=== PATIENT | female | born 1970 | race Caucasian/White ===

== ENCOUNTER 2019-06-23 14:43 | Emergency (ER) | payer OTHER ==
[2019-06-23 15:00] VITALS: BP 110/77; PULSE 91; TEMP 98.7; BMI 38.9
--- NOTE | 2019-06-23 15:27 | PDOC ---
History of Present Illness - General Chief Complaint: Syncope/Near Syncope Stated Complaint: SYNCOPE Time Seen by Provider: 06/23/19 15:24 Past History - Past Medical History Allergies/Adverse Reactions: Allergies Allergy/AdvReac Type Severity Reaction Status Date / Time No Known Allergies Allergy Verified 06/23/19 14:44 Home Medications: Ambulatory Orders Fluoxetine HCl [Prozac -] 20 mg PO DAILY 09/27/13 Glimepiride 2 mg PO DAILY 09/27/13 Omeprazole 40 mg PO DAILY 09/27/13 metFORMIN HCL [Glucophage -] 500 mg PO BID 09/27/13 Lamotrigine [Lamotrigine (Blue)] 1 dose PO DAILY 06/23/19 Anemia: Yes Asthma: Yes Cancer: No Cardiac Disorders: No CVA: No COPD: Yes CHF: No Dementia: No Diabetes: Yes GI Disorders: Yes (GERD) Disorders: No HTN: No Hypercholesterolemia: No Liver Disease: No Psychiatric Problems: Yes (PTSD) Seizures: No Thyroid Disease: No - Surgical History Abdominal Surgery: Yes (RT OVARY REMOVED) Appendectomy: No Cardiac Surgery: No Cholecystectomy: Yes GI Surgery: Yes (tummy tuck) Lung Surgery: No Neurologic Surgery: No Orthopedic Surgery: Yes (right hand carpal tunnel, left knee) - Psycho Social/Smoking Cessation Hx Smoking Status: No Smoking History: Never smoked Have you smoked in the past 12 months: No Number of Cigarettes Smoked Daily: 0 Information on smoking cessation initiated: No Hx Alcohol Use: No Drug/Substance Use Hx: No Substance Use Type: Alcohol Hx Substance Use Treatment: No *Physical Exam - Vital Signs Last Vital Signs Temp Pulse Resp BP Pulse Ox 98.7 F 91 H 20 110/77 100 06/23/19 14:43 06/23/19 14:43 06/23/19 14:43 06/23/19 14:43 06/23/19 14:43
--- NOTE | 2019-06-23 17:28 | PDOC ---
Documentation entered by Skye Oshea SCRIBE, acting as scribe for Anni Fischer MD. Anni Fischer MD: This documentation has been prepared by the Dayo porter Aiswarya, SCRIBE, under my direction and personally reviewed by me in its entirety. I confirm that the documentation accurately reflects all work, treatment, procedures, and medical decision making performed by me. History of Present Illness - General Chief Complaint: Syncope/Near Syncope Stated Complaint: SYNCOPE Time Seen by Provider: 06/23/19 15:24 History Source: Patient Exam Limitations: No Limitations - History of Present Illness Initial Comments: 06/23/19 16:10 The patient is a 49 year old female, with a significant PMH of anemia, asthma, COPD, diabetes, GERD and PTSD, who presents to the emergency department with lightheadedness and dizziness that began 2 days ago. The patient states she endorses associated symptoms of fatigue, sob, bleeding from the navel and urinary incontinence. She mentions she fell forward twice secondary to the dizziness. The patient denies head trauma, losing level of consciousness or any other injuries. Denies chest pain and headache. Denies fever, chills, nausea, vomit, diarrhea and constipation. Denies dysuria, frequency, urgency and hematuria. Allergies: NKDA Past surgical history: right ovary removed, tummy tuck surgery, right hand carpal tunnel, left knee surgery. Social history: None reported PCP: None reported Past History - Past Medical History Allergies/Adverse Reactions: Allergies Allergy/AdvReac Type Severity Reaction Status Date / Time No Known Allergies Allergy Verified 06/23/19 14:44 Home Medications: Ambulatory Orders Fluoxetine HCl [Prozac -] 20 mg PO DAILY 09/27/13 Glimepiride 2 mg PO DAILY 09/27/13 Omeprazole 40 mg PO DAILY 09/27/13 metFORMIN HCL [Glucophage -] 500 mg PO BID 09/27/13 Amoxicillin 875 mg PO BID #20 tablet 06/23/19 Lamotrigine [Lamotrigine (Blue)] 1 dose PO DAILY 06/23/19 Anemia: Yes Asthma: Yes Cancer: No Cardiac Disorders: No CVA: No COPD: Yes CHF: No Dementia: No Diabetes: Yes GI Disorders: Yes (GERD) Disorders: No HTN: No Hypercholesterolemia: No Liver Disease: No Psychiatric Problems: Yes (PTSD) Seizures: No Thyroid Disease: No - Surgical History Abdominal Surgery: Yes (RT OVARY REMOVED) Appendectomy: No Cardiac Surgery: No Cholecystectomy: Yes GI Surgery: Yes (tummy tuck) Lung Surgery: No Neurologic Surgery: No Orthopedic Surgery: Yes (right hand carpal tunnel, left knee) - Psycho Social/Smoking Cessation Hx Smoking Status: No Smoking History: Never smoked Have you smoked in the past 12 months: No Number of Cigarettes Smoked Daily: 0 Information on smoking cessation initiated: No Hx Alcohol Use: No Drug/Substance Use Hx: No Substance Use Type: Alcohol Hx Substance Use Treatment: No Cardiac Specific PMH - Complaint Specific PMHX Pacemaker: No Review of Systems - Review of Systems Able to Perform ROS?: Yes Comments:: 06/23/19 16:11 GENERAL/CONSTITUTIONAL:+fatigue. No fever or chills. HEAD, EYES, EARS, NOSE AND THROAT: No change in vision. No ear pain or discharge. No sore throat. CARDIOVASCULAR:+sob. No chest pain. RESPIRATORY: No cough, wheezing, or hemoptysis. MUSCULOSKELETAL: No joint or muscle swelling or pain. No neck or back pain. SKIN: No rash NEUROLOGIC:+lightheadedness. No headache, loss of consciousness, or change in strength/sensation. ENDOCRINE: No increased thirst. No abnormal weight change. HEMATOLOGIC/LYMPHATIC: No anemia, easy bleeding, or history of blood clots. ALLERGIC/IMMUNOLOGIC: No hives or skin allergy. *Physical Exam - Vital Signs Last Vital Signs Temp Pulse Resp BP Pulse Ox 98.7 F 91 H 20 110/77 100 06/23/19 14:43 06/23/19 14:43 06/23/19 14:43 06/23/19 14:43 06/23/19 14:43 - Physical Exam 06/23/19 16:12 GENERAL: Awake, alert, and fully oriented, in no acute distress HEAD: No signs of trauma ENT: +Right tympanic membrane dull and bulging with erythema. No exudate or vesicles. Left tympanic membrane clear. Nares patent, oropharynx clear without exudates. Moist mucosa LUNGS: Breath sounds equal, clear to auscultation bilaterally. No wheezes, and no crackles HEART: Regular rate and rhythm, normal S1 and S2, no murmurs, rubs or gallops ABDOMEN: Soft, nontender, normoactive bowel sounds. No guarding, no rebound. No masses NEUROLOGICAL: Cranial nerves II through XII grossly intact. Normal speech. 5/5 strength upper and lower extremity bilaterally. SKIN: Warm, Dry, normal turgor, no rashes or lesions noted. ED Treatment Course - LABORATORY CBC & Chemistry Diagram: 06/23/19 17:40 06/23/19 17:40 - ADDITIONAL ORDERS Additional order review: Laboratory Results 06/23/19 06/23/19 17:40 15:40 Sodium 138 Potassium 4.2 Chloride 102 Carbon Dioxide 28 Anion Gap 8 BUN 12.0 Creatinine 0.9 Est GFR (CKD-EPI)AfAm 86.41 Est GFR (CKD-EPI)NonAf 74.55 Random Glucose 127 H Calcium 8.9 Total Bilirubin 0.6 AST 15 ALT 11 L Alkaline Phosphatase 89 Total Protein 6.8 Albumin 3.6 Urine Color Yellow Urine Appearance Clear Urine pH 5.5 Urine Protein Negative Urine Glucose (UA) Negative Urine Ketones Negative Urine Blood Negative Urine Nitrite Negative Urine Bilirubin Negative Urine Urobilinogen 0.2 Ur Leukocyte Esterase Negative 06/23/19 17:40 RBC 4.06 MCV 77.7 L MCHC 33.0 RDW 13.7 D MPV 10.0 Neutrophils % 67.5 Lymphocytes % 27.6 Monocytes % 3.6 L Eosinophils % 1.0 Basophils % 0.3 - RADIOLOGY Radiology Studies Ordered: Category Date Time Status CHEST PA & LAT [RAD] Stat Radiology 06/23/19 17:13 Completed Medical Decision Making - Medical Decision Making 06/23/19 16:31 Pt presents to the ED with multiple complaints, including dizziness that appears to be positional vertigo, but also has some features of lightheadness. Denies loss of consciousness on repeated questioning. Also complaining of two episodes of urinary incontinence and "feeling off" neurologically, but has normal neuro exam and no specific or localizing symptoms. Neuro exam is normal. EKg is normal. Will check labs to rule out electrolyte disturbance and check cardiac enzymes. Patient also complains of some mild wheezing with exertion, consistent with previous COPD exacerbations. Denies current shortness of breath. Will check CXR. Will likely discharge home if labs and CXR are normal. patient has otitis in her left ear that may be responsible for her symptoms. 06/23/19 17:22 06/23/19 17:24 06/23/19 17:25 06/23/19 18:29 labs are within normal limits. EKG and CXR are normal. When I went to discuss the results with the patient, she became upset that CT head was not done because "something neurologic is wrong with me". I explained to her that given the nature of her symptoms and her normal neurologic exam, CT was likely to be negative, however, I offered to perform CT head. I told her that I did not want her to leave if she was still concerned that something important was being missed. Patient declined further work up, stating that she did not want to be in the hospital any more, and that she hoped "something big was missed so that I can lorna". I spoke to the patient at length about the work up that was done and the outpatient follow up that was needed to obtain a final diagnosis. I also spoke to her at length about the indications to return to the ED. 06/23/19 18:30 Discharge - Discharge Information Problems reviewed: Yes Clinical Impression/Diagnosis: Dizziness Condition: Good Disposition: HOME - Admission No - Additional Discharge Information Prescriptions: Amoxicillin 875 mg PO BID #20 tablet - Follow up/Referral - Patient Discharge Instructions Patient Printed Discharge Instructions: Middle Ear Infection, DI for Dizziness- Nonvertigo Additional Instructions: you came to the ED for dizziness and lightheadness. We did blood work, a chest xray and an EKG, all of which were normal. you do have an ear infection, which may be causing your symptoms. You should take the antibiotic prescribed until it is all gone. you should return to the ED for worsening symptoms, including chest pain, passing out, weakness on one side of your body or face, severe headache. Call your primary care doctor for follow up tomorrow. - Post Discharge Activity
[2019-06-23 18:11] LABS: ALBUMIN 3.6 g/dl (3.4-5.0); BASO % 0.3 % (0-2.0); BILIRUBIN,TOTAL 0.6 mg/dl (0.2-1); CALCIUM 8.9 mg/dl (8.5-10); CREATININE 0.9 mg/dl (0.55-1.3); HEMATOCRIT 31.5 % (32.4-45.2); HEMOGLOBIN 10.4 GM/dl (10.7-15.3); LYMPH % 27.6 % (8-40); MCH 25.6 pg (25.7-33.7); MEAN CELL VOLUME 77.7 fl (80-96); MONO % 3.6 % (3.8-10.2); NEUT % 67.5 % (42.8-82.8); PLATELET COUNT 276 K/MM3 (134-434); POTASSIUM 4.2 mmol/L (3.5-5.1); RBC 4.06 M/mm3 (3.60-5.2); RDW 13.7 % (11.6-15.6); TOT PROT 6.8 g/dl (6.4-8.2); WHITE BLOOD COUNT 8.2 K/mm3 (4.0-10.8)
--- NOTE | 2019-06-24 09:46 | EKG ---
Test Reason : Blood Pressure : / mmHG Vent. Rate : 073 BPM Atrial Rate : 073 BPM P-R Int : 168 ms QRS Dur : 082 ms QT Int : 406 ms P-R-T Axes : 043 014 022 degrees QTc Int : 447 ms NORMAL SINUS RHYTHM NORMAL ECG NO PREVIOUS ECGS AVAILABLE Confirmed by LILIYA ESCOBAR MD ([id number]) on 06/24/2019 9:45:43 AM Referred By: Confirmed By:LILIYA ESCOBAR MD
== END 2019-06-23 18:49 | disposition home or self-care (01) ==
LOC: FER 14:43
DX: R42 Dizziness and giddiness (principal); J44.9 Chronic obstructive pulmonary disease, unspecified; K21.9 Gastro-esophageal reflux disease without esophagitis; F43.10 Post-traumatic stress disorder, unspecified
CPT/HCPCS: 36415; 71046-TC-FY; 80053; 81003; 85025; 93005; 99284-25

== ENCOUNTER 2024-12-07 13:52 | Inpatient (IN) | payer OTHER ==
[2024-12-07 14:06] VITALS: BMI 33.7
[2024-12-07] MEDS ORDERED: ONDANSETRON 4 MG/2 ML VIAL ONE (14:50)
[2024-12-07] MEDS ORDERED: FAMOTIDINE 20 MG/50 ML IVPB 20 MG/50 ML MG IVPB ONE (14:50)
[2024-12-07] MEDS ORDERED: ACETAMINOPHEN INJECTION 100 ML ONE (14:50)
[2024-12-07] MEDS: ACETAMINOPHEN 1000 MG/100 ML BAG IVPB ONE (15:13)
[2024-12-07] MEDS: SODIUM CHLORIDE 1,000 ML IV STA (15:13)
[2024-12-07] MEDS: ONDANSETRON 4 MG/2 ML VIAL IVPUSH ONE (15:13)
[2024-12-07] MEDS: FAMOTIDINE 20 MG/50 ML IVPB 20 MG/50 ML MG IVPB ONE (15:13)
[2024-12-07 15:23] LABS: ABSOLUTE IMMATURE GRANULOCYTES 0.03 x10^3/uL (0.0-0.031); BASOPHILS # 0.01 x10^3/uL (0.01-0.08); EOSINOPHIL % 0.3 % (0.7-5.8); EOSINOPHILS # 0.03 x10^3/uL (0.04-0.36); MCHC 31.0 g/dl (32.2-35.5); MEAN CELL VOLUME 75.8 fl (79.4-94.8); MEAN PLT VOLUME 12.4 fl (9.4-12.3); MONOCYTE # 0.55 x10^3/uL (0.24-0.86); MONOCYTE % 6.2 % (4.7-12.5); RDW 14.3 % (12.3-16.6)
[2024-12-07 15:48] LABS: INR 1.01 (0.83-1.09); PROTHROMBIN TIME (PATIENT) 11.0 SEC (9.7-13.0)
[2024-12-07 15:57] LABS: CO2 29.0 mmol/L (21-32); GLUCOSE,RANDOM 171.0 mg/dL (74-106)
[2024-12-07 16:00] LABS: CREATININE 0.8 mg/dL (0.55-1.3); SGOT/AST 14.0 U/L (15-37); SGPT/ALT 15.0 U/L (13-61)
[2024-12-07 16:02] LABS: TOT PROT 6.6 g/dl (6.4-8.2)
[2024-12-07 16:03] LABS: ALK PHOS 113.0 U/L (45-117)
[2024-12-07] MEDS ORDERED: KETOROLAC TROMETHAMINE 15 MG/ML VIAL ONE (17:25)
[2024-12-07] MEDS: KETOROLAC TROMETHAMINE 15 MG/ML VIAL IVPUSH ONE (17:32)
[2024-12-07 17:33] LABS: HCV DIAGNOSTIC IN-HOUSE W/RFLX NON-REACTIVE (NONREACTIVE)
[2024-12-07] MEDS: KETOROLAC TROMETHAMINE 30 MG/1 ML VIAL IM ONE (17:33)
[2024-12-07] MEDS ORDERED: PIPERACILLIN/TAZOB 3.375 GM 3.375 GM/50 ML BAG IVPB ONE (17:59)
[2024-12-07] MEDS: PIPERACILLIN/TAZOB 3.375 GM 3.375 GM in DEXTROSE 5%-WATER - 50 ML IVPB ONE (18:16)
[2024-12-07 18:30] LABS: URINE APPEARANCE CLEAR; URINE BILIRUBIN NEGATIVE (NEGATIVE); URINE COLOR YELLOW; URINE GLUCOSE (UA) NEGATIVE (NEGATIVE); URINE KETONE NEGATIVE (NEGATIVE); URINE LEUK ESTERASE NEGATIVE (NEGATIVE); URINE NITRITE NEGATIVE (NEGATIVE); URINE PROTEIN NEGATIVE (NEGATIVE); URINE UROBILINOGEN 0.2 mg/dL (0.2-1.0)
[2024-12-07] MEDS ORDERED: ACETAMINOPHEN 1000 MG/100 ML BAG IVPB PRN (21:09)
[2024-12-07] MEDS: INSULIN ASPART SLIDING SCALE (NOVOLOG) 1 VIAL SQ SCH (21:51)
[2024-12-07] MEDS: SODIUM CHLORIDE 1,000 ML IV SCH (23:03)
[2024-12-07] MEDS: PIPERACILLIN/TAZOB 3.375 GM 3.375 GM in DEXTROSE 5%-WATER - 50 ML IVPB SCH (23:03)
[2024-12-08] MEDS ORDERED: PIPERACILLIN/TAZOB 3.375 GM 3.375 GM in DEXTROSE 5%-WATER - 50 ML IVPB SCH (00:01)
[2024-12-08 08:46] LABS: ABSOLUTE IMMATURE GRANULOCYTES 0.03 x10^3/uL (0.0-0.031); BASOPHILS # 0.02 x10^3/uL (0.01-0.08); EOSINOPHIL % 0.8 % (0.7-5.8); EOSINOPHILS # 0.06 x10^3/uL (0.04-0.36); MCHC 30.2 g/dl (32.2-35.5); MEAN CELL VOLUME 76.0 fl (79.4-94.8); MEAN PLT VOLUME 12.9 fl (9.4-12.3); MONOCYTE # 0.52 x10^3/uL (0.24-0.86); MONOCYTE % 7.1 % (4.7-12.5); RDW 14.4 % (12.3-16.6)
[2024-12-08 09:11] LABS: GLUCOSE,RANDOM 163.0 mg/dL (74-106)
[2024-12-08 09:12] LABS: CO2 28.0 mmol/L (21-32)
[2024-12-08 09:13] LABS: IRON SERUM 27 ug/dL (50-175)
[2024-12-08 09:14] LABS: CREATININE 1.0 mg/dL (0.55-1.3); SGPT/ALT 13.0 U/L (13-61)
[2024-12-08 09:15] LABS: TOT PROT 6.1 g/dl (6.4-8.2)
[2024-12-08 09:16] LABS: ALK PHOS 103.0 U/L (45-117); SGOT/AST 13.0 U/L (15-37)
[2024-12-08] MEDS: PANTOPRAZOLE SODIUM 40 MG VIAL IVPUSH SCH (09:25)
[2024-12-08] MEDS: SODIUM CHLORIDE 500 ML IV STA (10:20)
[2024-12-08] MEDS: MAGNESIUM SULFATE IN WATER 2 GM/50 ML IVPB IVPB ONE (11:06)
[2024-12-08] MEDS: DOXYCYCLINE INJECTION 100 MG in DEXTROSE 5%-WATER 100 ML IVPB SCH (16:36)
[2024-12-08] MEDS: PIPERACILLIN/TAZOB 3.375 GM 3.375 GM in DEXTROSE 5%-WATER - 50 ML IVPB SCH (18:13)
[2024-12-09] MEDS ORDERED: MELATONIN 5 MG TABLETS PO PRN (00:08)
[2024-12-09] MEDS: ACETAMINOPHEN 1000 MG/100 ML BAG IVPB SCH (09:58)
[2024-12-09] MEDS: ENOXAPARIN NA (PORCINE) 40 MG/0.4 ML DISP.SYRIN SQ SCH (10:00)
[2024-12-09 17:41] LABS: ABSOLUTE IMMATURE GRANULOCYTES 0.02 x10^3/uL (0.0-0.031); BASOPHILS # 0.03 x10^3/uL (0.01-0.08); EOSINOPHIL % 1.2 % (0.7-5.8); EOSINOPHILS # 0.08 x10^3/uL (0.04-0.36); MCHC 29.6 g/dl (32.2-35.5); MEAN CELL VOLUME 78.0 fl (79.4-94.8); MEAN PLT VOLUME 12.2 fl (9.4-12.3); MONOCYTE # 0.35 x10^3/uL (0.24-0.86); MONOCYTE % 5.5 % (4.7-12.5); RDW 14.2 % (12.3-16.6)
[2024-12-09 18:24] LABS: CO2 29.0 mmol/L (21-32)
[2024-12-09 18:27] LABS: CREATININE 0.9 mg/dL (0.55-1.3); SGOT/AST 14.0 U/L (15-37); SGPT/ALT 14.0 U/L (13-61)
[2024-12-09 18:28] LABS: TOT PROT 6.2 g/dl (6.4-8.2)
[2024-12-09 18:29] LABS: GLUCOSE,RANDOM 201.0 mg/dL (74-106)
[2024-12-09 18:30] LABS: ALK PHOS 126.0 U/L (45-117)
[2024-12-09 20:21] LABS: HIV INTERPRETATION NEGATIVE (NEGATIVE)
[2024-12-10 03:03] VITALS: RESP 18
[2024-12-10 09:05] LABS: ABSOLUTE IMMATURE GRANULOCYTES 0.02 x10^3/uL (0.0-0.031); BASOPHILS # 0.03 x10^3/uL (0.01-0.08); EOSINOPHIL % 2.2 % (0.7-5.8); EOSINOPHILS # 0.12 x10^3/uL (0.04-0.36); MCHC 29.2 g/dl (32.2-35.5); MEAN CELL VOLUME 77.2 fl (79.4-94.8); MEAN PLT VOLUME 12.6 fl (9.4-12.3); MONOCYTE # 0.32 x10^3/uL (0.24-0.86); MONOCYTE % 5.9 % (4.7-12.5); RDW 14.0 % (12.3-16.6)
[2024-12-10 09:08] LABS: MCHC 29.7 g/dl (32.2-35.5); MEAN CELL VOLUME 77.1 fl (79.4-94.8); MEAN PLT VOLUME 13.1 fl (9.4-12.3); RDW 14.0 % (12.3-16.6)
[2024-12-10 09:40] LABS: CREATININE 0.7 mg/dL (0.55-1.3)
[2024-12-10 09:41] LABS: CO2 28.0 mmol/L (21-32); GLUCOSE,RANDOM 154.0 mg/dL (74-106)
[2024-12-10 09:42] LABS: SGPT/ALT 13.0 U/L (13-61); TOT PROT 6.5 g/dl (6.4-8.2)
[2024-12-10 09:43] LABS: ALK PHOS 122.0 U/L (45-117)
[2024-12-10 09:44] LABS: SGOT/AST 13.0 U/L (15-37)
[2024-12-10] MEDS: ONDANSETRON 4 MG/2 ML VIAL IVPUSH PRN (14:18)
[2024-12-10 18:03] VITALS: BP 102/64; PULSE 62; TEMP 97.7
== END 2024-12-10 17:40 | disposition home or self-care (01) | DRG 244 ==
LOC: JER 13:52 → JERBED 17:57 → J6S 22:57 → OBSVTOIN 12-08 11:36
PROVIDERS: ADMIT Hospitalist; ATTEND Internal Medicine
DX: K57.32 Diverticulitis of large intestine without perforation or abscess without bleeding (principal); J44.9 Chronic obstructive pulmonary disease, unspecified; K21.9 Gastro-esophageal reflux disease without esophagitis; K63.2 Fistula of intestine; D50.9 Iron deficiency anemia, unspecified; E11.65 Type 2 diabetes mellitus with hyperglycemia; E83.42 Hypomagnesemia; F32.9 Major depressive disorder, single episode, unspecified; E66.811 Obesity, class 1; Z68.33 Body mass index [BMI] 33.0-33.9, adult
CPT/HCPCS: 36415; 74177-TC; 80048; 80053; 81003; 82607; 82728; 82746; 82962; 83036; 83540; 83550; 83605; 83690; 83735; 84100; 85025; 85027; 85610; 86803; 86850; 86900; 86901; 87070; 87077; 87086; 87205; 87389; 99285-25; G0378; Q9967